=== PATIENT | female | born 1985 | race Caucasian/White ===

== ENCOUNTER 2024-04-21 23:11 | Emergency (ER) | payer SELFPAY ==
[2024-04-21] MEDS ORDERED: KETOROLAC 30 MG/ML INJ ONE (23:55)
[2024-04-21] MEDS ORDERED: MORPHINE 4 MG/ML SYR ONE (23:55)
[2024-04-21] MEDS ORDERED: predniSONE 20 MG TAB ONE (23:55)
[2024-04-21] MEDS ORDERED: METHOCARBAMOL 1,000 MG/10 ML VIAL ONE (23:55)
[2024-04-21] MEDS ORDERED: DIAZEPAM 5 MG TABLET ONE (23:56)
[2024-04-21] MEDS ORDERED: NA CHLORIDE 0.9% 100 ML ONE (23:56)
--- NOTE | 2024-04-22 03:19 | ER ---
Nurse's Notes [facility] Name: Tanesha Dent Age: 38 yrs Sex: Female : 1985 Arrival Date: 04/21/2024 Time: 23:11 Bed 5 Private MD: Diagnosis: Acute Exacerbation of chronic back pain ;Lumbar spinal pain, Thoracic Spinal pain Presentation: 04/21 23:19 Chief complaint: Patient states: BACK PAIN, WEAKNESS OF LEG. POSSIBLE DUE TO FOUR ha1 HERNIATED DISK THAT I NEED TO HAVE SURGERY. 23:19 Coronavirus screen: Vaccine status: Patient reports receiving the 2nd dose of the covid ha1 vaccine. [place]. Ebola Screen: No symptoms or risks identified at this time. Initial Sepsis Screen: Does the patient meet any 2 criteria? No. Patient's initial sepsis screen is negative. Does the patient have a suspected source of infection? No. Patient's initial sepsis screen is negative. Risk Assessment: Do you want to hurt yourself or someone else? Patient reports no desire to harm self or others. Onset of symptoms was April 21, 2024. 23:19 Method Of Arrival: Wheelchair ha1 23:19 Acuity: KAYLEEN 3 ha1 Triage Assessment: 23:19 General: Appears uncomfortable, Behavior is cooperative. Pain: Complains of pain in ha1 back and left leg and right leg Pain does not radiate. Pain currently is 9 out of 10 on a pain scale. Quality of pain is described as throbbing. Neuro: Level of Consciousness is awake, alert, obeys commands, Oriented to person, place, time, situation. Cardiovascular: Capillary refill < 3 seconds Patient's skin is warm and dry. Respiratory: Airway is patent Respiratory effort is even, unlabored, Respiratory pattern is regular, symmetrical. Musculoskeletal: Circulation, motion, and sensation intact. FIXED INCOME DIRECTOR: 04/22 03:41 unknown bm8 Historical: - Allergies: 04/21 23:33 Sulfa (Sulfonamide Antibiotics); ha1 - PMHx: 23:33 Diabetes mellitus; Hypertensive disorder; Asthma; Arthritis; Anxiety; ha1 - PSHx: 23:33 Cholecystectomy; HYSTERECTOMY; section; ha1 - Immunization history:: Adult Immunizations up to date. - Infectious Disease History:: Denies. - Social history:: Smoking status: Reported history of juuling and/or vaping. Screenin:43 Abuse screen: Denies threats or abuse. Denies injuries from another. Nutritional ha1 screening: No deficits noted. Tuberculosis screening: No symptoms or risk factors identified. 04/22 01:37 [facility] ED Fall Risk Assessment (Adult) History of falling in the last 3 months, bm8 including since admission Yes- physiologic fall (2 pts) Confusion or Disorientation No (0 pts) Intoxicated or Sedated No (0 pts) Impaired Gait Yes (1 pt) Mobility Assist Device Used Yes (1 pt) Altered Elimination No (0 pt) Score/Fall Risk Level 3 or more points = High Risk Oriented to surroundings, Maintained a safe environment, Educated pt \T\ family on fall prevention, incl call for assistance when getting out of bed, Assessed \T\ reinforced patient's understanding of fall precautions, Hourly rounding (assess needs \T\ fall precautionary measures) done, Used ambulatory aids as needed (educated on \T\ assisted with), Used gait belt as appropriate Implemented a Fall Risk Plan of Care, Apply high fall risk patient identification: yellow non skid footwear/ fall signage. Assessment: 04/21 23:35 General: Appears distressed, uncomfortable, Behavior is calm, cooperative, appropriate bm8 for age. Pain: Complains of pain in back Pain currently is 9 out of 10 on a pain scale. Quality of pain is described as crampy, heavy, pressure. Neuro: Level of Consciousness is awake, alert, obeys commands, Oriented to person, place, time, situation, Appropriate for age Gait is pt reports unable to walk and bear weight. Numbness in right leg and left leg paresthesias in right leg and left leg Babinski is negative Reports numbness paresthesias. Cardiovascular: Denies chest pain, Capillary refill < 3 seconds in bilateral fingers toes Patient's skin is warm and dry. Respiratory: Airway is patent Trachea midline Respiratory effort is even, unlabored, Respiratory pattern is regular, symmetrical, Breath sounds are clear bilaterally. GI: No signs and/or symptoms were reported involving the gastrointestinal system. : No signs and/or symptoms were reported regarding the genitourinary system. EENT: No signs and/or symptoms were reported regarding the EENT system. Derm: No signs and/or symptoms reported regarding the dermatologic system. Musculoskeletal: Capillary refill < 3 seconds, in bilateral fingers. toes. Reports pain in back. 04/22 01:37 Reassessment: Patient appears in no apparent distress at this time. No changes from 8 previously documented assessment. Patient and/or family updated on plan of care and expected duration. Pain level reassessed. Patient is alert, oriented x 3, equal unlabored respirations, skin warm/dry/pink. Patient states symptoms have not improved. 02:40 Reassessment: Patient appears in no apparent distress at this time. Patient and/or bm8 family updated on plan of care and expected duration. Pain level reassessed. Patient is alert, oriented x 3, equal unlabored respirations, skin warm/dry/pink. pt assisted to latrine for elimination needs via wheelchair Patient states symptoms have improved. Pain: Complains of pain in back Pain currently is 7 out of 10 on a pain scale. 03:39 Reassessment: Patient appears in no apparent distress at this time. Patient and/or bm8 family updated on plan of care and expected duration. Pain level reassessed. Patient is alert, oriented x 3, equal unlabored respirations, skin warm/dry/pink. Patient states feeling better. Patient states symptoms have improved. 03:39 Reassessment: pt able to ambulate under own power at this time. slow steady gait. 8 Vital Signs: 04/21 23:19 BP 125 / 93; Pulse 92; Resp 17 S; Temp 97.9(T); Pulse Ox 96% on R/A; Weight 89.36 kg; ha1 Height 5 ft. 4 in. ; 23:35 BP 118 / 92; Pulse 97; Resp 17; Temp 97.9; Pulse Ox 99% ; Pain 9/10; bm8 04/22 01:37 BP 114 / 74; Pulse 84; Resp 18; Temp 97.9; Pulse Ox 100% ; bm8 02:40 BP 126 / 82; Pulse 77; Resp 18; Temp 97.9; Pulse Ox 95% ; Pain 7/10; bm8 03:39 BP 125 / 80; Pulse 75; Resp 17; Temp 98; Pulse Ox 100% ; Pain 5/10; bm8 04/21 23:19 Body Mass Index 33.81 (89.36 kg, 162.56 cm) [facility] 23:35 Pain Scale: Adult bm8 02:40 Pain Scale: Adult bm8 03:39 Pain Scale: Adult bm8 [place] Coma Score: 04/21 23:35 Eye Response: spontaneous(4). Motor Response: obeys commands(6). Verbal Response: bm8 oriented(5). Total: 15. 11 01:37 Eye Response: spontaneous(4). Motor Response: obeys commands(6). Verbal Response: bm8 oriented(5). Total: 15. ED Course: 04/21 23:15 Patient arrived in ED. im 23:20 Arm band placed on right wrist. bm8 23:24 Verenice Traore FNP-C is PHCP. kb 23:24 Huey Osei MD is Attending Physician. kb 23:32 Jeremiah Carballo, RN is Primary Nurse. bm8 23:33 Triage completed. ha1 23:36 Huey Osei MD is Attending Physician. sp4 04/22 00:06 No provider procedures requiring assistance completed. Inserted saline lock: 20 gauge dd2 in left antecubital area, using aseptic technique. Flushed with 10 mL NS. 01:37 Patient maintains SpO2 saturation greater than 95% on room air. bm8 01:37 Patient has correct armband on for positive identification. Placed in gown. Bed in low bm8 position. Call light in reach. Side rails up X2. Client placed on continuous cardiac and pulse oximetry monitoring. NIBP monitoring applied. Pulse ox on. NIBP on. Door closed. Noise minimized. Warm blanket given. Pillow given. Verbal reassurance given. Head of bed elevated. 01:51 CT Thoracic Spine Wo Cont In Process Unspecified. EDMS 01:51 CT Lumbar Spine Wo Con In Process Unspecified. EDMS 03:39 IV discontinued, intact, bleeding controlled, No redness/swelling at site. Pressure bm8 dressing applied. 03:39 Provided Education on: post er care. bm8 Administered Medications: 00:05 Drug: Methocarbamol IVPB 1 grams IVPB once over 1 hrs; (mix in NS 100 mL) Route: IVPB; dd2 Infused Over: 1 hrs; Site: left antecubital; 01:28 Follow up: Response: No adverse reaction; IV Status: Completed infusion; IV Intake: bm8 100ml 00:06 Drug: Diazepam PO 10 mg PO once Route: PO; dd2 01:24 Follow up: Response: No adverse reaction bm8 00:06 Drug: morphine IVP or IV 4 mg IVP once over 4 mins Route: IVP; Infused Over: 4 mins; dd2 Site: left antecubital; 01:24 Follow up: Response: No adverse reaction bm8 00:06 Drug: predniSONE PO 60 mg PO once Route: PO; dd2 01:24 Follow up: Response: No adverse reaction bm8 00:07 Drug: Ketorolac IVP 30 mg IVP once Route: IVP; Site: left antecubital; bm8 01:29 Follow up: Response: No adverse reaction bm8 01:27 CANCELLED (Physician Discretion): [id number] mg IVP once bm8 03:39 Drug: HYDROcodone-acetaminophen PO 5 mg-325 mg 2 tabs PO once Route: PO; bm8 03:39 Follow up: Response: No adverse reaction; Medication administered at discharge. bm8 Medication: 01:37 VIS not applicable for this client. bm8 Intake: 01:28 IV: 100ml; Total: 100ml. bm8 Outcome: 03:18 Discharge ordered by . sp4 03:39 Discharged to home ambulatory, bm8 03:39 Condition: stable 03:39 Discharge instructions given to patient, Instructed on discharge instructions, follow up and referral plans. no drinking with medication, no driving heavy equipment, medication usage, safety practices, Demonstrated understanding of instructions, follow-up care, medications, Prescriptions given X 4, 03:42 Patient left the ED. bm8 Signatures: Dispatcher [employer] EDIN Verenice Traore, TIESHA-C NURSE ORTHOPEDIC-Clau Costa RN RN ha1 Huey Osei MD MD sp4 Chichi Day Brad, RN RN bm8 JESS CARLOS RN RN dd2 Corrections: (The following items were deleted from the chart) 01:26 00:05 Ketorolac IVP 60 mg IVP in left antecubital dd2 dd2
--- NOTE | 2024-04-22 03:19 | EDPHYS ---
Physician Documentation [facility] Name: Tanesha Dent Age: 38 yrs Sex: Female : 1985 Arrival Date: 04/21/2024 Time: 23:11 Bed 5 Private MD: ED Physician Huey Osei HPI: 04/21 23:36 This 38 yrs old Female presents to ER via Wheelchair with complaints of Back sp4 Pain, Weakness - legs. CAFETERIA COOK: 04/22 03:41 unknown bm8 Historical: - Allergies: 04/21 23:33 Sulfa (Sulfonamide Antibiotics); ha1 - PMHx: 23:33 Diabetes mellitus; Hypertensive disorder; Asthma; Arthritis; Anxiety; ha1 - PSHx: 23:33 Cholecystectomy; HYSTERECTOMY; section; ha1 - Immunization history:: Adult Immunizations up to date. - Infectious Disease History:: Denies. - Social history:: Smoking status: Reported history of juuling and/or vaping. Vital Signs: 23:19 BP 125 / 93; Pulse 92; Resp 17 S; Temp 97.9(T); Pulse Ox 96% on R/A; Weight 89.36 kg; ha1 Height 5 ft. 4 in. ; 23:35 BP 118 / 92; Pulse 97; Resp 17; Temp 97.9; Pulse Ox 99% ; Pain 9/10; bm8 04/22 01:37 BP 114 / 74; Pulse 84; Resp 18; Temp 97.9; Pulse Ox 100% ; bm8 02:40 BP 126 / 82; Pulse 77; Resp 18; Temp 97.9; Pulse Ox 95% ; Pain 7/10; bm8 03:39 BP 125 / 80; Pulse 75; Resp 17; Temp 98; Pulse Ox 100% ; Pain 5/10; bm8 04/21 23:19 Body Mass Index 33.81 (89.36 kg, 162.56 cm) ha1 23:35 Pain Scale: Adult bm8 02:40 Pain Scale: Adult bm8 03:39 Pain Scale: Adult bm8 [place] Coma Score: 04/21 23:35 Eye Response: spontaneous(4). Motor Response: obeys commands(6). Verbal Response: bm8 oriented(5). Total: 15. 04/22 01:37 Eye Response: spontaneous(4). Motor Response: obeys commands(6). Verbal Response: bm8 oriented(5). Total: 15. MDM: 04/21 23:24 Medical Screening Exam initiated kb 04/22 02:52 ED course: EXAM DESCRIPTION: CT THORACIC SPINE WITHOUT IV CONTRAST 04/22/2024 2:32 AM sp4 HELPER MAINTENANCE CLEANING CLINICAL HISTORY: 38 years, Female, Back pain. COMPARISON: None. PROCEDURE: Multiple axial CT images through the Thoracic no spine were obtained at 2 mm slice thickness at 2 mm interval reconstruction. In addition 2-D multiplanar reformats and the sagittal coronal plane were performed and reviewed. An individualized dose optimization technique, Automated Exposure Control, was utilized for the performed procedure. FINDINGS: There is mild diffuse bony osteopenia. The alignment, of the vertebral bodies are normal. There is no evidence of fracture or subluxation. There is no significant spondylosis and/or degenerative changes. There is no evidence for significant spinal canal narrowing and/or stenosis. Posterior spinous processes and transverse processes demonstrate to be within normal limits. There is no prevertebral soft tissue swelling. Sagittal coronal reformatted images demonstrate no subluxation or bony abnormalities. IMPRESSION: Mild diffuse bony osteopenia. Otherwise unremarkable CT scan of the thoracic spine without contrast.. 03:16 ED course: PROCEDURE: CT Lumbar Spine Without Intravenous Contrast CLINICAL INDICATION: sp4 The patient is 38 years old and is Female; Lower back pain. TECHNIQUE: Axial computed tomography images of the lumbar spine without intravenous contrast. Sagittal and coronal reformatted images were created and reviewed. This CT exam was performed using one or more of the following dose reduction techniques: automated exposure control, adjustment of the mA and/or kV according to patient size, and/or use of iterative reconstruction technique. COMPARISON: None. FINDINGS: VERTEBRAE: No acute fracture. No subluxation or dislocation. No periosteal reaction. No suspicious lytic or blastic bone lesion. DISCS/SPINAL CANAL/NEURAL FORAMINA: No acute findings. No spinal canal stenosis. SOFT TISSUES: Unremarkable VASCULATURE: Mild calcified atherosclerosis of the abdominal aorta without aneurysmal dilatation. GALLBLADDER AND BILE DUCTS: Right upper quadrant cholecystectomy clips are noted. BLADDER: Prominence of the partially visualized urinary bladder. Recommend clinical correlation for evidence of urinary retention. IMPRESSION: 1. No acute abnormality of the lumbar spine. 2. Prominence of the partially visualized urinary bladder. Recommend clinical correlation for evidence of urinary retention. Electronically signed by: Truman Bond MD 04/22/2024 . 04/21 23:47 Order name: CT Thoracic Spine Wo Cont sp4 04/21 23:48 Order name: CT Lumbar Spine Wo Con sp4 04/21 23:48 Order name: Saline Lock; Complete Time: 00:05 sp4 Administered Medications: 00:05 Drug: Methocarbamol IVPB 1 grams IVPB once over 1 hrs; (mix in NS 100 mL) Route: IVPB; dd2 Infused Over: 1 hrs; Site: left antecubital; 01:28 Follow up: Response: No adverse reaction; IV Status: Completed infusion; IV Intake: bm8 100ml 00:06 Drug: Diazepam PO 10 mg PO once Route: PO; dd2 01:24 Follow up: Response: No adverse reaction bm8 00:06 Drug: morphine IVP or IV 4 mg IVP once over 4 mins Route: IVP; Infused Over: 4 mins; dd2 Site: left antecubital; 01:24 Follow up: Response: No adverse reaction bm8 00:06 Drug: predniSONE PO 60 mg PO once Route: PO; dd2 01:24 Follow up: Response: No adverse reaction bm8 00:07 Drug: Ketorolac IVP 30 mg IVP once Route: IVP; Site: left antecubital; bm8 01:29 Follow up: Response: No adverse reaction bm8 01:27 CANCELLED (Physician Discretion): mg IVP once bm8 03:39 Drug: HYDROcodone-acetaminophen PO 5 mg-325 mg 2 tabs PO once Route: PO; bm8 03:39 Follow up: Response: No adverse reaction; Medication administered at discharge. bm8 Disposition Summary: 04/22/24 03:18 Discharge Ordered Notes: Location: Home sp4 Problem: new sp4 Symptoms: have improved sp4 Condition: Stable sp4 Diagnosis - Acute Exacerbation of chronic back pain sp4 - Lumbar spinal pain, Thoracic Spinal pain sp4 Followup: sp4 - With: Private Physician - When: 7 - 10 days - Reason: Recheck today's complaints Discharge Instructions: - Discharge Summary Sheet sp4 - Acute Back Pain, Adult sp4 Forms: - Patient Portal Instructions sp4 Prescriptions: - naproxen 500 mg Oral tablet - take 1 tablet ORAL route every 12 hours PRN pain; 60 tablet; Refills: 0, sp4 Product Selection Permitted - Tramadol 50 mg Oral tablet - take 1 tablet ORAL route every 8 hours as needed; 20 tablet; Refills: 0, sp4 Product Selection Permitted - Prednisone 20 mg Oral tablet - take 2 tablets ORAL route once daily for 10 days; 20 tablet; Refills: 0, sp4 Product Selection Permitted - methocarbamol 750 mg Oral tablet - take 2 tablets ORAL route every 8 hours for 3 days PRN back pain; 60 tablet; sp4 Refills: 0, Product Selection Permitted Signatures: Dispatcher [employer] EDMS Verenice Traore, SECRETARY BOOKKEEPER-C SECRETARY BOOKKEEPER-CkClau Ramirez, RN RN ha1 Huey Osei MD MD sp4 Jeremiah Carballo RN RN bm8 JESS CARLOS RN RN dd2 Corrections: (The following items were deleted from the chart) 01: 11 23:47 Ketorolac IVP 60 mg IVP once ordered. sp4 bm8 04/22 01:27 00:05 Ketorolac IVP 60 mg IVP once given. dd2 bm8 01:27 01:26 Ketorolac IVP 60 mg IVP once ordered. dd2 bm8
[2024-04-22] MEDS ORDERED: HYDROCODONE/APAP 5/325 MG TAB ONE (03:29)
--- NOTE | 2024-04-22 03:57 | RAD REPORT ---
PROCEDURE: CT Lumbar Spine Without Intravenous Contrast CLINICAL INDICATION: The patient is 38 years old and is Female; Lower back pain. TECHNIQUE: Axial computed tomography images of the lumbar spine without intravenous contrast. Sagittal and cor onal reformatted images were created and reviewed. This CT exam was performed using one or more of the following dose reduction techniques: automated exposure control, adjustment of the mA and/or kV according to patient size, and/or use of iterative reconstruction technique. COMPARISON: None. FINDINGS: VERTEBRAE: No acute fracture. No subluxation or dislocation. No periosteal reaction. No suspicious lytic or blastic bone lesion. DISCS/SPINAL CANAL/NEURAL FORAMINA: No acute findings. No spinal canal stenosis. SOFT TISSUES: Unremarkable VASCULATURE: Mild calcified atherosclerosis of the abdominal aorta without aneurysmal dilatation. GALLBLADDER AND BILE DUCTS: Right upper quadrant cholecystectomy clips are noted. BLADDER: Prominence of the partially visualized urinary bladder. Recommend clinical correlation for evidence of urinary retention. IMPRESSION: 1. No acute abnormality of the lumbar spine. 2. Prominence of the partially visualized urinary bladder. Recommend clinical correlation for evide nce of urinary retention. Electronically signed by: Truman Bond MD 04/22/2024 03:09 AM [facility] Due to temporary technical issues with the PACS/[employer] reporting system, reports are being sharifa d by the in-house radiologist without review as a courtesy to ensure prompt reporting the interpreting radiologist is fully responsible for the content of the report. Transcribed Date/Time: 04/22/2024 3:58 AM
--- NOTE | 2024-04-22 03:58 | RAD REPORT ---
EXAM DESCRIPTION: CT THORACIC SPINE WITHOUT IV CONTRAST 04/22/2024 2:32 AM PHARMACY SALES REPRESENTATIVE CLINICAL HISTORY: 38 years, Female, Back pain. COMPARISON: None. PROCEDURE: Multiple axial CT images through the Thoracic no spine were obtained at 2 mm slice thickness at 2 mm interval reconstruction. In addition 2-D multiplanar reformats and the sagittal coronal plane were performed and reviewed. An individualized dose optimization technique, Automated Exposure Control, was utilized for the perfo rmed procedure. FINDINGS: There is mild diffuse bony osteopenia. The alignment, of the vertebral bodies are normal. There is no evidence of fracture or subluxation. There is no significant spondylosis and/or degenerative changes. There is no evidence for significant spinal canal narrowing and/or stenosis. Posterior spino us processes and transverse processes demonstrate to be within normal limits. There is no prevertebral soft tissue swelling. Sagittal coronal reformatted images demonstrate no subluxation o r bony abnormalities. IMPRESSION: Mild diffuse bony osteopenia. Otherwise unremarkable CT scan of the thoracic spine without contrast. Electronically signed by: Edin Hilario MD 04/22/2024 02:40 AM PHARMACY SALES REPRESENTATIVE Due to temporary technical issues with the PACS/[employer] reporting system, reports are being sharifa d by the in-house radiologist without review as a courtesy to ensure prompt reporting the interpreting radiologist is fully responsible for the content of the report. Transcribed Date/Time: 04/22/2024 3:58 AM
[2024-04-22 04:09] VITALS: BP 125/80; TEMP 98; O2SAT 100
== END 2024-04-22 03:42 | disposition home or self-care (01) ==
LOC: ER 23:11
DX: M54.50 Low back pain, unspecified (principal); M54.6 Pain in thoracic spine
CPT/HCPCS: 72128; 72131; J2800; J7512